=== PATIENT | male | born 1970 | race Caucasian/White ===

== ENCOUNTER 2018-05-03 13:58 | Emergency (ER) | payer OTHER ==
[~2018-05-03] VITALS: Ht 172.7 cm; Wt 81.7 kg
[~2018-05-03 13:58] MED LIST: CHLO25 PO; Inderal 20 mg T20 MG PO
[2018-05-03] MEDS ORDERED: PROP10 (15:18)
[2018-05-03] MEDS ORDERED: GABA100 (15:19)
[2018-05-03] MEDS ORDERED: FLUO10 (15:19)
[2018-05-03] MEDS ORDERED: NAPR500EC (15:19)
[2018-05-03] MEDS ORDERED: ALBU90OI INH (15:19)
== END 2018-05-03 16:26 | disposition home or self-care (01) ==
LOC: ER 13:58
DX: M77.9 Enthesopathy, unspecified (principal); F41.9 Anxiety disorder, unspecified; F17.210 Nicotine dependence, cigarettes, uncomplicated; Z79.899 Other long term (current) drug therapy
CPT/HCPCS: 73610; 99283-25

== ENCOUNTER → 2018-05-11 | Outpatient (CLI) | payer OTHER ==
[~2018-05-11] MED LIST changes: +ALBU90OI INH; +FLUO10; +GABA100; +NAPR500EC; +PROP10
[2018-05-11 18:26] LABS: Source, Urine Voided
[2018-05-11 18:50] LABS: Appearance, Urine Hazy (Clear); Blood, Urine Neg (Neg); Color, Urine Amber (P-Yellow); Glucose Qualitative, Urine Neg (Neg); Ketones, Urine 1+ (Neg); Leukocyte Esterase, Urine 1+ (Neg); Nitrite, Urine Neg (Neg); Protein, Urine 2+ (Neg); Specific Gravity, Urine 1.025 (1.003-1.022); Urobilinogen, Urine 1+ (Normal)
[2018-05-11 19:36] LABS: Bilirubin, Urine 1+ (Neg)
[2018-05-11 19:37] LABS: Red Blood Cells, Urine 0-2 /hpf (0-2)
[2018-05-11 19:38] LABS: Bacteria Mod /hpf; Mucus Light (0-Heavy); Squamous Epithelial Cells Few /hpf (Few)
== END | disposition home or self-care (01) ==
LOC: LAB SHORT 10:52 → LAB 10:52
PROVIDERS: Registered Nurse
DX: R82.998 Other abnormal findings in urine (principal)
CPT/HCPCS: 81001; 87086

== ENCOUNTER 2019-02-04 11:14 | Inpatient (IN) | payer OTHER ==
[~2019-02-04] VITALS: Ht 172.7 cm; Wt 77.8 kg
[~2019-02-04 11:14] MED LIST changes: -GABA100; +GABA300 PO; +NAPR220 PO; -NAPR500EC; -PROP10; +PROP10 PO
[2019-02-04 12:05] LABS: BASOPHILS ABSOLUTE AUTO 0.03 K/mm3 (0.00-0.23); BASOPHILS PERCENT AUTO 0 % (0-2); EOSINOPHILS PERCENT AUTO 1 % (0-6); Hematocrit 36.7 % (37.0-53.0); Hemoglobin 12.7 g/dL (13.5-17.5); IMMATURE GRAN ABSOLUTE AUTO 0.04 K/mm3 (0.00-0.10); IMMATURE GRAN PERCENT AUTO 0 % (0-1); LYMPHOCYTES ABSOLUTE AUTO 0.83 K/mm3 (0.84-5.20); LYMPHOCYTES PERCENT AUTO 9 % (21-46); MONOCYTES ABSOLUTE AUTO 1.57 K/mm3 (0.16-1.47); MONOCYTES PERCENT AUTO 17 % (4-13); Mean Corpuscular HGB 31.8 pg (26.0-34.0); Mean Corpuscular HGB Conc 34.6 g/dL (31.5-36.5); Mean Corpuscular Volume 92 fL (80-100); Mean Platelet Volume 10.5 fL (9.1-12.4); NEUTROPHILS ABSOLUTE AUTO 6.88 K/mm3 (1.96-9.15); NEUTROPHILS PERCENT AUTO 73 % (41-73); Platelet Count 245 K/mm3 (150-400); RDW Coefficient Variation 14.6 % (11.7-14.2); RDW Standard Deviation 49.6 fL (35.1-46.3); Red Blood Cell Count 3.99 M/mm3 (4.30-5.90); White Blood Cell Count 9.45 K/mm3 (4.00-11.30)
[2019-02-04 12:22] LABS: Alanine Aminotransfer (ALT/SGP 39 U/L (12-78); Albumin, Blood 2.8 g/dL (3.4-5.0); Albumin/Globulin Ratio 0.7 (0.8-1.8); Alk Phos 116 U/L (50-136); Anion Gap 8 mmol/L (6-16); Aspartate Aminotrans (AST/SGOT 28 U/L (12-37); Bilirubin, Total 0.6 mg/dL (0.1-1.0); Blood Urea Nitrogen 16 mg/dL (8-24); Bun/Creatinine Ratio 20.3 (12.0-20.0); CO2, Blood 26 mmol/L (21-32); Calcium, Blood 8.6 mg/dL (8.5-10.1); Chloride, Blood 97 mmol/L (98-108); Creatinine, Blood 0.79 mg/dL (0.60-1.20); Globulin, Blood 4.3 g/dL (2.2-4.0); Glomerular Filtration Rate >60 (60-); Glucose, Blood 136 mg/dL (70-99); Potassium, Blood 3.6 mmol/L (3.5-5.5); Sodium, Blood 131 mmol/L (136-145); Total Protein, Blood 7.1 g/dL (6.4-8.2)
[2019-02-04] MEDS ORDERED: DULERA 200 MCG/13 GM INH (14:45)
--- NOTE | 2019-02-04 18:04 | NUR ---
SHIFT SUMMARY: PT WAS ADMITTED FROM THE ED AND WALKED UP TO HIS ROOM AT HIS REQUEST. PT IS A/O X 4 AND APPEARS ANXIOUS. HIS RIGHT EYE IS CLEARLY SWOLLEN AND HE REPORTS THAT HIS SENSATION ON THE RIGHT SIDE OF HIS FACE WHERE THE SWELLING IS IS SLIGHTLY LESS THAN NORMAL. HE IS SQUINTING OUT OF HIS RIGHT EYE. PT ALSO HAS HALITOSIS AND REPORTS THAT HE HAS A "BAD TOOTH" BUT HAS [employer] AND IT HAS BEEN BAD FOR AWHILE AND HE THINKS THAT IS CONTRIBUTING TO HIS CURRENT CONDITION. IV FLUIDS WERE STARTED ORDERED. AND PT IS RESTING IN BED. HE WAS ORIENTED TO HIS ROOM AND NURSING STAFF AND IS ABLE TO USE HIS CALL LIGHT WHEN NEEDED.
--- NOTE | 2019-02-04 21:22 | NUR ---
2121 PATIENT WENT OUTSIDE ACCOMPANIED BY FRIENDS. EXPLAINED THAT WE WANT HIM TO REMAIN SAFE AND REQUESTED THAT HIS FRIENDS TAKE HIM DOWN AND BRING HIM BACK TO HIS ROOM. PATIENT AGREEABLE TO THIS. WCTM.
[2019-02-04 23:38] LABS: U Amphetamine Screen Not Detected; U Barbituate Screen Not Detected; U Benzodiazapine Screen Not Detected; U Buprenorphine Screen Not Detected; U Cannabinoids Screen DETECTED; U Cocaine Screen Not Detected; U Methadone Screen Not Detected; U Methamphetamine Screen Not Detected; U Opiates Screen Not Detected; U Oxycodone Screen Not Detected; U Phencyclidine Screen Not Detected; U Propoxyphene Screen Not Detected
--- NOTE | 2019-02-05 01:31 | NUR ---
PHYSICIAN COMMUNICATION PATIENT HAD BEEN HAVING A FAIR AMOUNT OF PAIN DUE TO HIS ORBITAL CELLULITIS AND REQUESTED NAPROXEN IT WAS THE ONLY MEDICATION THAT WORKED FOR INFLAMMATION FOR HIM. CALLED THE BANK PRESIDENT PHYSICIAN TO RELAY THESE DETAILES AND RECEIVED AN ORDER FOR 500 MG OF NAPROXEN BID NEEDED.
[2019-02-05 05:51] LABS: BASOPHILS ABSOLUTE AUTO 0.02 K/mm3 (0.00-0.23); BASOPHILS PERCENT AUTO 0 % (0-2); EOSINOPHILS PERCENT AUTO 6 % (0-6); Hematocrit 35.5 % (37.0-53.0); Hemoglobin 11.9 g/dL (13.5-17.5); IMMATURE GRAN ABSOLUTE AUTO 0.05 K/mm3 (0.00-0.10); IMMATURE GRAN PERCENT AUTO 1 % (0-1); LYMPHOCYTES ABSOLUTE AUTO 0.92 K/mm3 (0.84-5.20); LYMPHOCYTES PERCENT AUTO 13 % (21-46); MONOCYTES PERCENT AUTO 16 % (4-13); Mean Corpuscular HGB 31.1 pg (26.0-34.0); Mean Corpuscular HGB Conc 33.5 g/dL (31.5-36.5); Mean Corpuscular Volume 93 fL (80-100); Mean Platelet Volume 10.2 fL (9.1-12.4); NEUTROPHILS ABSOLUTE AUTO 4.56 K/mm3 (1.96-9.15); NEUTROPHILS PERCENT AUTO 65 % (41-73); Platelet Count 237 K/mm3 (150-400); RDW Coefficient Variation 15.4 % (11.7-14.2); RDW Standard Deviation 52.6 fL (35.1-46.3); Red Blood Cell Count 3.83 M/mm3 (4.30-5.90); White Blood Cell Count 7.05 K/mm3 (4.00-11.30)
--- NOTE | 2019-02-05 08:04 | NUR ---
SHIFT SUMMARY PATIENT SEEMS TO BE GAINING MORE SENSATION IN HIS RIGHT CHEEK WHERE THE INFLAMMATION IS. HE STATES THAT IT FEELS LESS NUMB AND MORE PAINFUL. THE IV IN HIS RIGHT UPPER ARM INFILTRATED SO THE PROCEDURE NURSE INSERTED A POWERGLIDE IN HIS LEFT UPPER ARM WHICH FLUSHES AND DRAWS SMOOTHLY. PATIENT HAD A BOUT OF SEVERE PAIN LAST NIGHT IN HIS FACE FOR WHICH HE RECEIVED PRN OXYCODONE, THIS WAS EFFECTIVE AND ALLOWED HIM TO GET SOME RESTFUL SLEEP. BED IN LOWEST POSITION WITH WHEELS LOCKED. CALL LIGHT WITHIN REACH. REPORT GIVEN TO ONCOMING RN.
--- NOTE | 2019-02-05 12:15 | NUR ---
IN TO SEE
[2019-02-05 15:31] LABS: Vancomycin, Trough 13.3 ug/mL (5.0-10.0)
--- NOTE | 2019-02-05 18:08 | NUR ---
LEFT MESSAGE ON VOICE MAIL THAT PATIENT PREFERS NAPROSYN-DOES NOT TAKE TYLENOL OR ADVIL AND HAS HAD 3 BOUTS DIARRHEA TODAY AND IS ON LACTOBACILLUS. AWAITING CALLBACK OR ORDERS.
--- NOTE | 2019-02-05 18:51 | NUR ---
ALERT. ORIENTED. FACE LOOKING MUCH BETTER. ENT HAS SEEN PATIENT. PATIENT AWARE TO DO SALINE NASAL FLUSHES TID. SHOWN HOW TO DO. UNLABORED RESPIRATIONS. HAS BEEN WALKING AROUND HOSPITAL WITH STEADY GAIT. ADVISED IF SMOKING NICOTINE PATCH NEEDS TO BE OFF FOR 5 HOURS. STS NOT SMOKING. NO CHANGES WITH NEURO CHECKS . WCTM
--- NOTE | 2019-02-06 05:34 | NUR ---
SHIFT SUMMARY PT A/O. C/O PAIN IN R EYE AREA X1 AND MEDICATED PER EMAR. UP WALKING IN HALLS AND OUTSIDE A FEW TIMES. NO CHANGES IN SENSATION OF R EYE AREA. NOT MUCH SLEEP T/O NIGHT, FELL ASLEEP AFTER 0300 BUT ONLY FOR A COUPLE HOURS OR SO. CALL LIGHT IN REACH.
[2019-02-06 05:42] LABS: BASOPHILS ABSOLUTE AUTO 0.01 K/mm3 (0.00-0.23); BASOPHILS PERCENT AUTO 0 % (0-2); EOSINOPHILS PERCENT AUTO 0 % (0-6); Hematocrit 35.7 % (37.0-53.0); Hemoglobin 11.8 g/dL (13.5-17.5); IMMATURE GRAN ABSOLUTE AUTO 0.04 K/mm3 (0.00-0.10); IMMATURE GRAN PERCENT AUTO 1 % (0-1); LYMPHOCYTES ABSOLUTE AUTO 0.64 K/mm3 (0.84-5.20); LYMPHOCYTES PERCENT AUTO 11 % (21-46); MONOCYTES ABSOLUTE AUTO 0.48 K/mm3 (0.16-1.47); MONOCYTES PERCENT AUTO 8 % (4-13); Mean Corpuscular HGB 30.5 pg (26.0-34.0); Mean Corpuscular HGB Conc 33.1 g/dL (31.5-36.5); Mean Corpuscular Volume 92 fL (80-100); Mean Platelet Volume 10.1 fL (9.1-12.4); NEUTROPHILS ABSOLUTE AUTO 4.84 K/mm3 (1.96-9.15); NEUTROPHILS PERCENT AUTO 81 % (41-73); Platelet Count 274 K/mm3 (150-400); RDW Coefficient Variation 15.1 % (11.7-14.2); RDW Standard Deviation 51.4 fL (35.1-46.3); Red Blood Cell Count 3.87 M/mm3 (4.30-5.90); White Blood Cell Count 6.01 K/mm3 (4.00-11.30)
[2019-02-06 06:17] LABS: Albumin, Blood 2.5 g/dL (3.4-5.0); Anion Gap 7 mmol/L (6-16); Blood Urea Nitrogen 15 mg/dL (8-24); Bun/Creatinine Ratio 21.7 (12.0-20.0); CO2, Blood 26 mmol/L (21-32); Calcium, Blood 8.8 mg/dL (8.5-10.1); Chloride, Blood 102 mmol/L (98-108); Creatinine, Blood 0.69 mg/dL (0.60-1.20); Glomerular Filtration Rate >60 (60-); Glucose, Blood 163 mg/dL (70-99); Phosphorus, Blood 2.5 mg/dL (2.5-4.9); Potassium, Blood 3.8 mmol/L (3.5-5.5); Sodium, Blood 135 mmol/L (136-145)
[2019-02-06 15:30] LABS: Vancomycin, Trough 19.3 ug/mL (5.0-10.0)
--- NOTE | 2019-02-06 17:40 | NUR ---
ALERT. ORIENTED. OUTSIDE MULTIPLE TIMES TODAY. STEADY GAIT IN HALLWAY. AND HAVE SEEN PATIENT TODAY. PATIENT FACE LOOKS MUCH BETTER. SWELLING HAS DECREASED SIGNIFICANTLY SINCE YESTERDAY. UNLABORED RESPIRATIONS. AWARE WILL BE ON TAPERING DOSE PREDNISONE. ABLE TO MAKE NEEDS KNOWN. TM.
--- NOTE | 2019-02-07 04:09 | NUR ---
SHIFT SUMMARY PT IS EAGER TO BE DISCHARGED. PT HAS SLEPT VERY LITTLE THIS SHIFT. PT HAS WALKED AROUND CAMPUS FREQUENTLY. PT HAD SOME FACIAL DISCOMFORT AND WAS TX PER EMAR. PT IS CURRENTLY RESTING AND IN NO DISTRESS. CALL LIGHT IN REACH.
--- NOTE | 2019-02-07 05:34 | NUR ---
*REFUSED MORNING ABX* PT REFUSED MORNING ABX. PT STATES HE IS EXHAUSTED AND THAT HE WAS INFORMED THAT HE WAS GOING TO BE CHANGED OVER TO PO ABX AND BE DISCHARGED AT 0900 HRS.
--- NOTE | 2019-02-07 06:33 | NUR ---
*PT LEFT AMA* PT HAS LEFT AMA. PT SIGNED INFORMED AMA SHEET AND POWER GLIDE WAS REMOVED.
== END 2019-02-07 06:33 | disposition left against medical advice (07) | DRG 121 ==
LOC: ER 11:14 → MEDS 11:15
PROVIDERS: Nurse Practitioner Acute Care; Pharmacist; Physician Assistant; ADMIT Family Medicine
DX: H05.011 Cellulitis of right orbit (principal); L03.213 Periorbital cellulitis; E87.1 Hypo-osmolality and hyponatremia; J44.9 Chronic obstructive pulmonary disease, unspecified; J45.20 Mild intermittent asthma, uncomplicated; F41.1 Generalized anxiety disorder; D64.9 Anemia, unspecified; F32.9 Major depressive disorder, single episode, unspecified; K04.7 Periapical abscess without sinus; J32.1 Chronic frontal sinusitis; J32.2 Chronic ethmoidal sinusitis; F17.210 Nicotine dependence, cigarettes, uncomplicated
CPT/HCPCS: 36415; 70487; 80053; 80069; 80202; 85025; 94640; 94760; 96365-59; 96366; 96367; 96375-59; 96376; 99285-25; A9270; C1751; G0378; J1100; J2405; J2543; J3010; J3370; J7030; J7050; Q9967

== ENCOUNTER 2022-01-05 05:56 | Day surgery (SDC) | payer OTHER ==
[~2022-01-05] VITALS: Ht 172.7 cm; Wt 108.8 kg
[~2022-01-05 05:56] MED LIST changes: +ACETAMINOPHEN PO; +DULERA 200 MCG/13 GM INH; +Flonase 0.05% N16 GM; +IBUP200 PO; +SYMBICORT 160-4.6 GM INH
--- NOTE | 2022-01-05 06:15 | NUR ---
Ambulatory in Day Surgery. History, Chart, Medications and Allergies reviewed before start of procedure. Lungs clear T/O to Auscultation. Patient States Post-Procedure ride NOT NEEDED STAYING THE NIGHT
[2022-01-05] MEDS ORDERED: Inderal 20 mg T20 MG PO (06:27)
[2022-01-05] MEDS ORDERED: CETI5 PO (06:28)
--- NOTE | 2022-01-05 10:00 | NUR ---
ARRIVAL PATIENT ARRIVED TO ROOM VIA GURNEY, USED SLIDER SHEET TO TRANSFER TO BED, TOLERATED WELL. PATIENT HAS MIDLINE ABDOMINAL INCIION W/ GAUZE & TEGADERM, APPEARS C/D/I, ABDOMINAL BINDER IN PALCE. PATIENT RPORTS PAIN 9/10 AT THIS TIME, PLAN TO MEDICATE PER EMAR. VSS, ON 3L O2 VIA NC, SATTING >92%. LUNGS CLEAR. DENIES SOB/DIFFICULTY BREATHING. DENIES N/T. ORIENTED TO ROOM & CALL LIGHT, IN REACH.
--- NOTE | 2022-01-05 17:08 | NUR ---
PATIENT LOST IV ACCESS. DR ZUNIGA CONTACTED AND GAVE VERBAL INSTRUCTIONS THAT NO MORE ABX ARE NECCESSARY AND NO IV ACCESS IS NEEDED.
--- NOTE | 2022-01-05 18:02 | NUR ---
SHIFT SUMMARY POD 0 HERNIA REPAIR. NO ACUTE EVENTS. DRESSING TO ABDOMEN, C/D/I. ABDOMINAL BINDER IN PLACE. PAIN MANAGED WITH PERCOCET PER EMAR. TOLERATING REGULAR DIET WELL. AMBULATING WELL WITHIN ROOM INDEPENDENTLY. CALLS APPROPRIATELY, WILL REPORT TO ONCOMING RN.
[2022-01-06 05:30] LABS: BASOPHILS ABSOLUTE AUTO 0.03 K/mm3 (0.00-0.23); BASOPHILS PERCENT AUTO 0 % (0-2); EOSINOPHILS ABSOLUTE AUTO 0.01 K/mm3 (0.00-0.68); EOSINOPHILS PERCENT AUTO 0 % (0-6); Hemoglobin 12.9 g/dL (13.5-17.5); IMMATURE GRAN ABSOLUTE AUTO 0.03 K/mm3 (0.00-0.10); IMMATURE GRAN PERCENT AUTO 0 % (0-1); LYMPHOCYTES ABSOLUTE AUTO 2.26 K/mm3 (0.84-5.20); LYMPHOCYTES PERCENT AUTO 17 % (21-46); MONOCYTES ABSOLUTE AUTO 1.24 K/mm3 (0.16-1.47); MONOCYTES PERCENT AUTO 9 % (4-13); Mean Corpuscular HGB 29.5 pg (26.0-34.0); Mean Corpuscular HGB Conc 33.9 g/dL (31.5-36.5); Mean Corpuscular Volume 87 fL (80-100); Mean Platelet Volume 9.9 fL (9.1-12.4); NEUTROPHILS ABSOLUTE AUTO 10.02 K/mm3 (1.96-9.15); NEUTROPHILS PERCENT AUTO 74 % (41-73); Platelet Count 271 K/mm3 (150-400); RDW Coefficient Variation 13.3 % (11.7-14.2); RDW Standard Deviation 42.2 fL (35.1-46.3); Red Blood Cell Count 4.38 M/mm3 (4.30-5.90); White Blood Cell Count 13.59 K/mm3 (4.00-11.30)
[2022-01-06 05:57] LABS: Bun/Creatinine Ratio 23.2 (12.0-20.0); Calcium, Blood 9.3 mg/dL (8.5-10.1); Creatinine, Blood 0.78 mg/dL (0.60-1.20)
--- NOTE | 2022-01-06 06:45 | NUR ---
POD 1 S/P VENTRAL HERNIA REPAIR. PT VSS T/O NIGHT. DRESSING CDI, MELO PUT OUT 30ML SS DRNG. ABD BINDER IN PLACE. PAIN MGD W/2 PERCOCET W/REP RELIEF. BT ACTIVE, ABD FIRM TO PALP. PT BRYN REG PO, REP +FLATUS. PT AMB INDEP IN ROOM. PLAN TO DC HOME TODAY.
[2022-01-06] MEDS ORDERED: Percocet 5-3251 EACH PO (09:38)
--- NOTE | 2022-01-06 10:47 | NUR ---
DISCHARGE POD 1 HERNIA REPAIR. DRESSING TO MIDLINE ABDOMEN, C/D/I. ABDOMINAL BINDER IN PLACE. PAIN MANAGED WITH PERCOCET PER EMAR. EATING, DRINKING, & VOIDING WELL, DENIES N/V. REPORTS FLATUS. DISCUSSED DISCHARGE INSTRUCTIONS & HOW TO EMPTY & RECORD MELO DRAIN OUTPUT. PATIENT DEMONSTRATED & VERBALIZED UNDERSTANDING. SENT RX & DISCHARGE INSTRUCTIONS WITH PATIENT.
== END 2022-01-06 10:37 | disposition home or self-care (01) ==
LOC: ORSCMMR 05:56 → ORD 07:30 → SURS 09:45 → ORSCMMR 01-06 10:37
PROVIDERS: Surgery
PROC: 0WUF0JZ Supplement Abdominal Wall with Synthetic Substitute, Open Approach (ICD-10-PCS; principal; 2022-01-05 07:30)
DX: K43.6 Other and unspecified ventral hernia with obstruction, without gangrene (principal); J45.909 Unspecified asthma, uncomplicated; Z86.19 Personal history of other infectious and parasitic diseases; K21.9 Gastro-esophageal reflux disease without esophagitis; F41.1 Generalized anxiety disorder; F32.A Depression, unspecified; F43.10 Post-traumatic stress disorder, unspecified; E66.9 Obesity, unspecified; Z68.36 Body mass index [BMI] 36.0-36.9, adult; Z79.51 Long term (current) use of inhaled steroids; Z79.899 Other long term (current) drug therapy; F17.210 Nicotine dependence, cigarettes, uncomplicated
CPT/HCPCS: 36415; 80048; 85025; 94640; 94664; 94760; A9270; C1781; J0690; J1100; J1885; J2250; J2405; J2704; J2795; J3010; J7120

== ENCOUNTER 2023-11-07 16:18 | Inpatient (IN) | payer OTHER ==
[~2023-11-07] VITALS: Ht 172.7 cm; Wt 91.0 kg
[~2023-11-07 16:18] MED LIST changes: +CETI5 PO; +Percocet 5-3251 EACH PO
[2023-11-07] MEDS ORDERED: Heparin Sodium 5000 Units/ML 1ML MDV IV ONE (16:30)
[2023-11-07] MEDS ORDERED: Aspirin 325 MG Tab PO ONE (16:30)
[2023-11-07] MEDS ORDERED: Clopidogrel Bisulfate 300 MG Cap PO ONE (16:30)
[2023-11-07 16:34] LABS: Calcium, Ionized (POC) 1.16 mmol/L (1.10-1.46); Chloride (POC) 102 mmol/L (98-108); Creatinine (POC) 1.3 mg/dL (0.8-1.3); Glucose (ISTAT POC) 126 mg/dL (70-99); Hemoglobin (POC) 14.3 g/dL (13.5-17.5); Potassium (POC) 4.3 mmol/L (3.5-5.5); Sodium (POC) 132 mmol/L (135-148); Total CO2 (POC) 18 mmol/L (21-32)
[2023-11-07] MEDS ORDERED: Heparin Sodium 1000 Units/ML 10ML MDV ONE (16:34)
[2023-11-07] MEDS ORDERED: NS 1,000 ML IV ONE ×2 (16:34→16:36)
[2023-11-07] MEDS ORDERED: Verapamil HCL 2.5 MG/ML 2ML Injection ONE (16:34)
[2023-11-07] MEDS ORDERED: NS 250 ML IV ONE (16:34)
[2023-11-07] MEDS ORDERED: Midazolam HCl 1MG / ML 2ML Vial ONE (16:35)
[2023-11-07] MEDS ORDERED: FentaNYL Citrate 50 MCG/ML 2 ML Injection ONE (16:35)
[2023-11-07] MEDS ORDERED: Tirofiban HCL Monohydrate 3.75 MG/15 ML Vial ONE (16:36)
[2023-11-07 16:44] LABS: BASOPHILS ABSOLUTE AUTO 0.07 K/mm3 (0.00-0.23); BASOPHILS PERCENT AUTO 1 % (0-2); EOSINOPHILS ABSOLUTE AUTO 0.07 K/mm3 (0.00-0.68); EOSINOPHILS PERCENT AUTO 1 % (0-6); Hematocrit 39.8 % (37.0-53.0); Hemoglobin 13.5 g/dL (13.5-17.5); IMMATURE GRAN ABSOLUTE AUTO 0.02 K/mm3 (0.00-0.10); IMMATURE GRAN PERCENT AUTO 0 % (0-1); LYMPHOCYTES ABSOLUTE AUTO 2.37 K/mm3 (0.84-5.20); LYMPHOCYTES PERCENT AUTO 24 % (21-46); MONOCYTES ABSOLUTE AUTO 0.74 K/mm3 (0.16-1.47); MONOCYTES PERCENT AUTO 8 % (4-13); Mean Corpuscular HGB 29.2 pg (26.0-34.0); Mean Corpuscular HGB Conc 33.9 g/dL (31.5-36.5); Mean Corpuscular Volume 86 fL (80-100); Mean Platelet Volume 9.9 fL (9.1-12.4); NEUTROPHILS PERCENT AUTO 67 % (41-73); Platelet Count 420 K/mm3 (150-400); RDW Coefficient Variation 13.3 % (11.7-14.2); RDW Standard Deviation 41.1 fL (35.1-46.3); Red Blood Cell Count 4.63 M/mm3 (4.30-5.90); White Blood Cell Count 9.77 K/mm3 (4.00-11.30)
[2023-11-07] MEDS ORDERED: Nitroglycerin 2 MG/20 ML BTL ONE (16:58)
[2023-11-07 16:59] LABS: International Normalized Ratio 0.97; Prothrombin Time Results 10.4 Sec (9.7-11.5)
[2023-11-07 17:10] LABS: Alanine Aminotransfer (ALT/SGP 25 U/L (12-78); Albumin, Blood 4.1 g/dL (3.4-5.0); Albumin/Globulin Ratio 1.1 (0.8-1.8); Alk Phos 80 U/L (50-136); Anion Gap 11 mmol/L (3-11); Aspartate Aminotrans (AST/SGOT 19 U/L (12-37); Bilirubin, Total 0.7 mg/dL (0.1-1.0); Blood Urea Nitrogen 30 mg/dL (8-24); CHOL/HDL RATIO 4.3; CO2, Blood 22 mmol/L (21-32); Calcium, Blood 9.7 mg/dL (8.5-10.1); Chloride, Blood 102 mmol/L (98-108); Cholesterol 163 mg/dL (50-200); Globulin, Blood 3.7 g/dL (2.2-4.0); Glomerular Filtration Rate 72 (60-); Glucose, Blood 132 mg/dL (70-99); HDL Cholesterol 38 mg/dL (>39); LDL/HDL RATIO 2.6; Low Density Lipoprotein Chol 97 mg/dL (0-110); Potassium, Blood 4.3 mmol/L (3.5-5.5); Sodium, Blood 131 mmol/L (136-145); Total Protein, Blood 7.8 g/dL (6.4-8.2); Triglycerides 140 mg/dL (30-160); Very Low Density Lipoprot Chol 28 mg/dL (6-32)
[2023-11-07] MEDS ORDERED: NS 1,000 ML IV SCH (17:35)
[2023-11-07 17:38] VITALS: BP 103/72
[2023-11-07] MEDS ORDERED: ACET500 PO (18:37)
--- NOTE | 2023-11-07 19:17 | NUR ---
LATE ENTRY: PT ADMITTED FROM [id number]. PT WITH RIGHT WRIST ACCESS, TR BAND IN PLACE. DENIES ANY CHEST PAIN OR DISCOMFORT. IS EXPRESSING HOW GOOD HE IS NOW FEELING AND STATING HE WISHED HE WOULD HAVE NOTICED SOONER. VSS, TOOK IN SOME NOURISH- MENT, DRINKING FLUIDS AND IV NS @ 200ML/HR INITIATED. ADMISSION COMPLETED AND EDUCATION PERFORMED WHILE TALKING.
[2023-11-07 20:17] VITALS: BP 119/86
[2023-11-07] MEDS ORDERED: Heparin Sodium,Porcine 5,000 UNIT/0.5 ML SDV SC ONE (20:30)
[2023-11-07] MEDS ORDERED: Aspirin 81 MG Chew PO ONE (20:30)
[2023-11-07] MEDS ORDERED: Atorvastatin 40 MG Tab PO SCH (21:00)
[2023-11-07 21:15] VITALS: BP 118/88
[2023-11-07 22:15] VITALS: BP 126/87
--- NOTE | 2023-11-07 22:45 | NUR ---
AIR IN TR BAND SLOWLY BEING REMOVED. SITE CHECKED FREQUENTLY FOR BLEEDING.
[2023-11-07 23:15] VITALS: BP 130/113
[2023-11-08] VITALS (15 sets, daily range): BP systolic 101–146; BP diastolic 59–109
[2023-11-08 03:41] LABS: BASOPHILS ABSOLUTE AUTO 0.09 K/mm3 (0.00-0.23); BASOPHILS PERCENT AUTO 1 % (0-2); EOSINOPHILS ABSOLUTE AUTO 0.19 K/mm3 (0.00-0.68); EOSINOPHILS PERCENT AUTO 2 % (0-6); Hematocrit 37.2 % (37.0-53.0); Hemoglobin 12.5 g/dL (13.5-17.5); IMMATURE GRAN ABSOLUTE AUTO 0.04 K/mm3 (0.00-0.10); IMMATURE GRAN PERCENT AUTO 0 % (0-1); LYMPHOCYTES PERCENT AUTO 33 % (21-46); MONOCYTES ABSOLUTE AUTO 0.73 K/mm3 (0.16-1.47); MONOCYTES PERCENT AUTO 7 % (4-13); Mean Corpuscular HGB 28.9 pg (26.0-34.0); Mean Corpuscular HGB Conc 33.6 g/dL (31.5-36.5); Mean Corpuscular Volume 86 fL (80-100); Mean Platelet Volume 9.6 fL (9.1-12.4); NEUTROPHILS ABSOLUTE AUTO 5.52 K/mm3 (1.96-9.15); NEUTROPHILS PERCENT AUTO 56 % (41-73); Platelet Count 333 K/mm3 (150-400); RDW Coefficient Variation 13.4 % (11.7-14.2); Red Blood Cell Count 4.33 M/mm3 (4.30-5.90); White Blood Cell Count 9.87 K/mm3 (4.00-11.30)
[2023-11-08 04:14] LABS: Albumin, Blood 3.7 g/dL (3.4-5.0); Albumin/Globulin Ratio 1.1 (0.8-1.8); Bilirubin, Total 0.4 mg/dL (0.1-1.0); Bun/Creatinine Ratio 23.6 (12.0-20.0); Creatinine, Blood 0.97 mg/dL (0.60-1.20); Globulin, Blood 3.3 g/dL (2.2-4.0); Potassium, Blood 3.6 mmol/L (3.5-5.5); Thyroid Stimulating Hormone 0.529 uIU/mL (0.360-4.800)
--- NOTE | 2023-11-08 05:53 | NUR ---
PATIENT GETTING BACK FROM BATHROOM, WHEN STATING THAT HIS INDIGESTION HAD RETURNED. PLACED BACK ON MONITOR AND OBSERVED ST SEGMENT ELEVATED ABOVE BASELINE. PATIENT BECOMING DIAPHORETIC. 12 LEAD EKG DONE, AND PATIENT STATING THAT THE INDIGESTION WAS GOING AWAY. DIAPHORESIS DECREASING. DR. CLANCY AT BEDSIDE TO SEE PATIENT.
[2023-11-08] MEDS ORDERED: FentaNYL Citrate 50 MCG/ML 2 ML Injection ONE ×2 (06:00→07:01)
[2023-11-08] MEDS ORDERED: FentaNYL Citrate 50 MCG/ML 2 ML Injection IV ONE (06:05)
[2023-11-08] MEDS ORDERED: Nitroglycerin 0.4 MG SUBL ONE (06:17)
[2023-11-08] MEDS ORDERED: NITROGLYCERIN 0.4 MG UD ONE (06:20)
[2023-11-08] MEDS ORDERED: Nitroglycerin 0.4 MG SUBL SL PRN (06:30)
[2023-11-08] MEDS ORDERED: Isosorbide Mononitrate 30 MG TABCR PO ONE (06:35)
[2023-11-08] MEDS ORDERED: AmLODIPine Besylate 5 MG Tab PO ONE (06:40)
--- NOTE | 2023-11-08 06:51 | NUR ---
PATIENT WITH MULTIPLE EPISODES OF INDIGESTION AND ELEVATED ST SEGMENTS. DR. CLANCY CALLED BACK TO ICU TO SEE PATIENT AND SHOW EKG WITH ELEVATED ST SEGMENTS. DR. GOINS NOTIFIED AND AT BEDSIDE TO SEE PATIENT. PATIENT MEDICATED AND AWAITING ARRIVAL OF ELECTRIC SHOVEL OPERATOR CREW. PATIENT HEART RHYTHM STABILIZING AT PRESENT TIME.
[2023-11-08] MEDS ORDERED: NS 1,000 ML IV ONE ×2 (06:53→07:01)
[2023-11-08] MEDS ORDERED: NS 250 ML IV ONE (06:53)
[2023-11-08] MEDS ORDERED: Verapamil HCL 2.5 MG/ML 2ML Injection ONE (06:53)
[2023-11-08] MEDS ORDERED: Nitroglycerin 2 MG/20 ML BTL ONE (06:53)
[2023-11-08] MEDS ORDERED: Heparin Sodium 1000 Units/ML 10ML MDV ONE (06:53)
[2023-11-08] MEDS ORDERED: Midazolam HCl 1MG / ML 2ML Vial ONE (07:01)
--- NOTE | 2023-11-08 07:14 | NUR ---
ASSUMED CARE/HANDOFF TO HOTEL DESK CLERK TOOK REPORT FROM JOSE ALVES. PT RESTING SUPINE IN BED, HE APPEARS DIAPHORETIC AND TENSE. HE REPORTS HIS CHEST PAIN WAS IMPROVED FROM ORAL NITRO AND FENTANYL GIVEN BY NOC RN. PT IS A&0 X 4. HE IS ABLE TO ANSWER QUESTIONS AND RESPOND APPROPRIATELY. SPO2 >96 ON RA. SYSTOLIC BP 110S, MAP >65. RIGHT WRIST PCI SITE HAS SPLINT W/ TEGADERM AND NO BLEEDING IS PRESENT. HOTEL DESK CLERK JOSELYN EDAL AND SAY ARRIVED AND TRANSPORTED PATIENT AT 07:10.
[2023-11-08] MEDS ORDERED: Aspirin 81 MG Chew PO SCH (09:00)
[2023-11-08] MEDS ORDERED: Nicotine 21 MG PATCH TOP SCH (09:00)
[2023-11-08] MEDS ORDERED: buPROPion HCL 150 MG TAB.SR.12H PO SCH (09:00)
[2023-11-08] MEDS ORDERED: Isosorbide Mononitrate 30 MG TABCR PO SCH (09:00)
[2023-11-08] MEDS ORDERED: AmLODIPine Besylate 5 MG Tab PO SCH (09:00)
[2023-11-08] MEDS ORDERED: Propranolol HCL 80 MG CAPCR PO SCH (09:00)
[2023-11-08] MEDS ORDERED: Lisinopril 5 MG Tab PO SCH (09:00)
[2023-11-08] MEDS ORDERED: Clopidogrel Bisulfate 75 MG Tab PO SCH (09:00)
[2023-11-08] MEDS ORDERED: FentaNYL Citrate 50 MCG/ML 2 ML Injection IV PRN (11:15)
[2023-11-08] MEDS ORDERED: OMEPRAZOLE20 MG PO (11:18)
[2023-11-08] MEDS ORDERED: Acetaminophen 500 MG Tab PO PRN (11:30)
[2023-11-08] MEDS ORDERED: Mometasone/Formoterol MDI 200/5 mcg 13 GM INH SCH (11:50)
--- NOTE | 2023-11-08 12:37 | NUR ---
TRANSFERRED TO PCU GAVE PATIENT HANDOFF TO ALEXA ALVES IN PCU 15. PATIENT TRANSPORTED VIA WHEELCHAIR, TOLERATED WELL. BELONGINGS WITH PATIENT. TR BAND AT 8CC AIR. VISUALLY INSPECTED WITH ALEXA ALVES AND PCU CHARGE NURSE.
--- NOTE | 2023-11-08 12:45 | NUR ---
PT TRANSFERED FROM ICU 05 TO PCU 15. REPORT GIVEN FROM [place] MORRISON AND CARLOS ALVES. THE PT ARRIVED VIA WHEELE CHAIR AND WAS ABLE TO TRANSFER 1P SBA. HE DID COME WITH 8CC IN HIS RIGHT WRIST TR BAND. SITE WITH SLIGHT BRUISING, BUT NO NEW BLEEDING NOTED WHEN EXAMINING IT WITH ICU NURSES. VS STABLE. WEIGHT 91 KG. THE PT IS SR 90'S ON TELE AND BP STABLE. HE DENIES ANY ANGINA OR CHEST PRESSURE AT THIS TIME. PULSES PALPABLE. PERRLA. LUNG SOUNDS CLEAR T/O AND THE PT REMAINS ON RA W/O ANY SOB. HE WAS SET UP WITH A SNACK AND DRINK. 1CC OF AIR REMOVED FROMT HE TR BAND WHEN HE WAS SETTLED IN THE ROOM. SEE NOTES FOR UPDATES.
[2023-11-08] MEDS ORDERED: Gabapentin 300 MG Cap PO SCH (14:00)
--- NOTE | 2023-11-08 15:26 | NUR ---
tr band fully recovered and site dressed with a tegaderm. some bruising noted. no hematoma, bleeding, n/t, or pain at the site. see notes for updates.
[2023-11-08] MEDS ORDERED: Verapamil HCL 120 MG TABCR PO SCH (21:00)
[2023-11-08] MEDS ORDERED: Pantoprazole Sodium 40 MG Tab PO SCH (21:00)
[2023-11-08] MEDS ORDERED: Loratadine 10 MG Tab PO SCH (21:00)
--- NOTE | 2023-11-08 21:04 | NUR ---
VSS. DENIES CHEST PAIN. VOICED SLIGHT NEUROPATHY IN FEET, BUT HAS BEEN THAT WAY FOR A WHILE. UP AD NIC WITH OBS. CALL TYLER MCKENNA.
--- NOTE | 2023-11-08 21:22 | NUR ---
NICODERM PATCH REMOVED PER MD ORDER. DISCUSSED QUITTING SMOKING, VOICED HE PATRICK WAS IN THE PROCESS OF IT. CALM. WATCHING TV AND TALKING ON PERSONAL PHONE. CALL LUTHERIN REACH. WILL CONT TO MONITOR
[2023-11-09 00:14] VITALS: BP 123/65
[2023-11-09 00:26] VITALS: BP 123/65
--- NOTE | 2023-11-09 03:27 | NUR ---
CLEAT BLANKER SUMMARY VSS. POST STEMI, NICOTINE PATCH DC'D PER MD AND REMOVED. ENCOURAGED TO STOP SMOKING, VOICED HE WAS IN THE PROCESS OF DOING SO WHEN GETTING IN TO BED AT . MED TELE SINUS IN THE 80'S. DENIED CHEST PAIN WHEN ASKED. VOICED SLIGHT NEUROPATHY IN BLE FEET. HAS BEEN RESTING QUIETLY WITH FEW INTERRUPTIONS. UP TO BATHROOM WITH OBSERVATION, NO NOTED DISTRESS. ABLE TO REPOSITION SELF IN BED WITHOUT ASSIST FOR COMFORT AND SKIN MAINTENANCE. CALL LIGHT IN REACH, RAILS UPX 2 AND BED IN LOW POSITION FOR SAFETY. WILL CONTINUE TO MONITOR.
[2023-11-09 04:10] VITALS: BP 125/75
[2023-11-09 04:33] LABS: BASOPHILS ABSOLUTE AUTO 0.09 K/mm3 (0.00-0.23); BASOPHILS PERCENT AUTO 1 % (0-2); EOSINOPHILS ABSOLUTE AUTO 0.26 K/mm3 (0.00-0.68); EOSINOPHILS PERCENT AUTO 3 % (0-6); Hematocrit 35.9 % (37.0-53.0); Hemoglobin 12.2 g/dL (13.5-17.5); IMMATURE GRAN ABSOLUTE AUTO 0.02 K/mm3 (0.00-0.10); IMMATURE GRAN PERCENT AUTO 0 % (0-1); LYMPHOCYTES ABSOLUTE AUTO 2.59 K/mm3 (0.84-5.20); LYMPHOCYTES PERCENT AUTO 31 % (21-46); MONOCYTES ABSOLUTE AUTO 0.69 K/mm3 (0.16-1.47); MONOCYTES PERCENT AUTO 8 % (4-13); Mean Corpuscular HGB 29.5 pg (26.0-34.0); Mean Corpuscular Volume 87 fL (80-100); Mean Platelet Volume 9.6 fL (9.1-12.4); NEUTROPHILS PERCENT AUTO 57 % (41-73); Platelet Count 320 K/mm3 (150-400); RDW Coefficient Variation 13.5 % (11.7-14.2); RDW Standard Deviation 42.5 fL (35.1-46.3); Red Blood Cell Count 4.14 M/mm3 (4.30-5.90); White Blood Cell Count 8.45 K/mm3 (4.00-11.30)
[2023-11-09 05:00] LABS: Bun/Creatinine Ratio 25.1 (12.0-20.0); Calcium, Blood 9.3 mg/dL (8.5-10.1); Creatinine, Blood 0.84 mg/dL (0.60-1.20); Potassium, Blood 3.9 mmol/L (3.5-5.5)
[2023-11-09] MEDS ORDERED: Pantoprazole Sodium 40 MG Tab PO SCH (06:00)
[2023-11-09 07:45] VITALS: BP 152/90
[2023-11-09] MEDS ORDERED: Loratadine 10 MG Tab PO SCH (09:00)
[2023-11-09] MEDS ORDERED: Fluticasone 0.05% Nasal Spray SCH (09:00)
[2023-11-09] MEDS ORDERED: PANT40 PO (11:16)
[2023-11-09] MEDS ORDERED: ASPI81CH PO (11:16)
[2023-11-09] MEDS ORDERED: ATOR40TA PO (11:17)
[2023-11-09] MEDS ORDERED: BUPR150ER PO (11:17)
[2023-11-09] MEDS ORDERED: CLOP75 PO (11:18)
[2023-11-09] MEDS ORDERED: Imdur30 MG PO (11:18)
[2023-11-09] MEDS ORDERED: LISI5 PO (11:19)
[2023-11-09] MEDS ORDERED: VERA120ERB PO (11:21)
--- NOTE | 2023-11-09 12:18 | NUR ---
DISCHARGE UPDATE DISCHARGE PACKET GONE OVER WITH PT AND PT VISITOR AT 1200. PT DISCHARGED AT 1215. PT DECLINED WHEEKCHAIR AND WAS ABLE TO WALK ON HIS OWN, TOLERATED WELL. DISCHARGE PACKET AND PERSONAL BELONGNGS IN BAG AND WITH PT'S VISITOR AT TIME OF DISCHARGE. TR SITE C/D/I WITH ARM BOARD IN PLACE.
== END 2023-11-09 12:15 | disposition home or self-care (01) | DRG 322 ==
LOC: ER 16:18 → ICUE 16:41 → PCU 11-08 12:31
PROVIDERS: Emergency Medicine; Family Medicine; Internal Medicine Interventional Cardiology; ADMIT Internal Medicine
PROC: 027034Z Dilation of Coronary Artery, One Artery with Drug-eluting Intraluminal Device, Percutaneous Approach (ICD-10-PCS; 2023-11-07)
PROC: B2111ZZ Fluoroscopy of Multiple Coronary Arteries using Low Osmolar Contrast (ICD-10-PCS; principal; 2023-11-08)
PROC: 4A023N7 Measurement of Cardiac Sampling and Pressure, Left Heart, Percutaneous Approach (ICD-10-PCS; 2023-11-08)
DX: I21.19 ST elevation (STEMI) myocardial infarction involving other coronary artery of inferior wall (principal); F32.A Depression, unspecified; F41.9 Anxiety disorder, unspecified; I10 Essential (primary) hypertension; F17.210 Nicotine dependence, cigarettes, uncomplicated; D64.9 Anemia, unspecified; I25.10 Atherosclerotic heart disease of native coronary artery without angina pectoris; G62.9 Polyneuropathy, unspecified; Z98.890 Other specified postprocedural states; Z79.899 Other long term (current) drug therapy; F43.10 Post-traumatic stress disorder, unspecified; F41.1 Generalized anxiety disorder; J45.20 Mild intermittent asthma, uncomplicated; J44.9 Chronic obstructive pulmonary disease, unspecified; Z71.6 Tobacco abuse counseling
CPT/HCPCS: 36415; 76937; 80047; 80048; 80053; 80061; 83036; 83735; 84443; 84484; 85014; 85025; 85610; 86850; 86900; 86901; 92953; 93005; 93010; 93454; 93571; 94640; 94664; 94760; 96374-59; 99152; 99153; 99285-25; A9270; C1725; C1769; C1874; C1887; C1894; C8929; C9606; G0378; J1644; J2250; J3010; J3246; J7030; J7050; Q9957; Q9967